=== PATIENT | female | born 1970 | race Caucasian/White ===

== ENCOUNTER 2023-09-25 22:10 | Emergency (ER) | payer OTHER ==
[~2023-09-25] VITALS: Ht 160 cm; Wt 83.9 kg
[2023-09-25 22:25] VITALS: BP 148/88; TEMP 98.1; O2SAT 100
[2023-09-25] MEDS ORDERED: IBUPROFEN 400 MG TABLET ONE (22:38)
[2023-09-25] MEDS ORDERED: IBUPROFEN 400 MG TABLET PO ONE (23:00)
== END 2023-09-26 01:00 | disposition left against medical advice (07) ==
LOC: ER 22:17
DX: S92.001A Unspecified fracture of right calcaneus, initial encounter for closed fracture (principal); Y93.39 Activity, other involving climbing, rappelling and jumping off; Y93.89 Activity, other specified; Y92.89 Other specified places as the place of occurrence of the external cause; Y99.8 Other external cause status
CPT/HCPCS: 73610-TC